=== PATIENT | female | born 1945 | race African-American/Black ===

== ENCOUNTER 2023-10-02 20:13 | Emergency (ER) | payer OTHER, MEDICAID ==
[~2023-10-02] VITALS: Ht 157.5 cm; Wt 61.0 kg
[2023-10-02 20:22] VITALS: BP 145/56; TEMP 98.4; O2SAT 98
[2023-10-02 20:24] VITALS: PULSE 103; RESP 16
== END 2023-10-03 00:17 | disposition left against medical advice (07) ==
LOC: ER 20:13
DX: Z53.21 Procedure and treatment not carried out due to patient leaving prior to being seen by health care provider (principal)
CPT/HCPCS: 99281